=== PATIENT | male | born 1940 | race Caucasian/White ===

== ENCOUNTER 2018-09-17 10:54 | Day surgery (SDC) | payer MEDICARE ==
[~2018-09-17 10:54] MED LIST: CEFAZOLIN 2 Gram 2 GM/50 ML BAG IVPB ONE; FAMOTIDINE 20MG TABLET PO ONE; MECLIZINE 25 MG TABLET PO ONE; METOCLOPRAMIDE 10 MG TABLET PO ONE; VANCOMYCIN 1GM/200ML PREMIX 1 GM/200 ML PIGGYBACK IVPB ONE
[2018-09-17] MEDS ORDERED: LIDOCAINE 2% MDV (20MG/ML) 20ML VIAL IV ONE (10:55)
[2018-09-17] MEDS ORDERED: GLYCOPYRROLATE 0.2 MG/ML ML IV ONE (10:55)
[2018-09-17] MEDS ORDERED: DEXAMETHASONE 4 MG/ML 1ML VIAL IVP ONE (10:55)
[2018-09-17] MEDS ORDERED: MIDAZOLAM HCL 2MG/2ML VIAL IV ONE (10:55)
[2018-09-17] MEDS ORDERED: 0.9 % SODIUM CHLORIDE 10 ML VIAL IVP ONE (10:55)
[2018-09-17] MEDS ORDERED: ROPIVACAINE HCL (NAROPIN) /PF 5MG/ML 20ML VIAL IV ONE (10:55)
[2018-09-17] MEDS ORDERED: VASOPRESSIN 20 U/ML VIAL IM ONE (10:55)
[2018-09-17] MEDS ORDERED: EPHEDRINE SULFATE 50 MG/ML ML IV ONE (10:55)
[2018-09-17] MEDS ORDERED: TRANEXAMIC ACID 1,000 MG/10 ML ML IV ONE ×2 (10:55)
[2018-09-17] MEDS ORDERED: RINGERS SOLUTION,LACTATED 1,000 ML IV ONE (12:00)
[2018-09-17 12:41] LABS: ABO GROUP A; ANTIBODY SCREEN NEGATIVE (NEGATIVE); RH TYPE POSITIVE
[2018-09-17] MEDS ORDERED: BUPIVACAINE 0.5% W/EPI MPF 30 ML VIAL SQ ONE (13:32)
[2018-09-17] MEDS ORDERED: HYDROCODONE/APAP 10/325 TABLET PO PRN ×2 (14:31)
[2018-09-17] MEDS ORDERED: ONDANSETRON HCL IV 4 MG/2 ML VIAL IVP PRN (14:31)
[2018-09-17] MEDS ORDERED: NALOXONE 0.4 MG/1 ML VIAL IVP PRN (14:31)
[2018-09-17] MEDS ORDERED: BISACODYL 10 MG SUPP RC PRN (14:31)
[2018-09-17] MEDS ORDERED: MAGNESIUM HYDROXIDE 30 ML UDC PO PRN (14:31)
[2018-09-17] MEDS ORDERED: AL HYDROX/MAG HYDROX 30ML UD PO PRN (14:31)
[2018-09-17] MEDS ORDERED: KETOROLAC 30 MG/ML VIAL IVP PRN ×2 (14:31)
[2018-09-17] MEDS ORDERED: ACETAMINOPHEN W/ CODEINE 300MG/60MG TABLET PO PRN ×2 (14:31)
[2018-09-17] MEDS ORDERED: ZOLPIDEM TARTRATE 5 MG TABLET PO PRN (14:31)
[2018-09-17] MEDS ORDERED: ACETAMINOPHEN 325 MG TAB PO PRN (14:31)
[2018-09-17] MEDS ORDERED: DIPHENHYDRAMINE HCL 25 MG CAPSULE PO PRN (14:31)
[2018-09-17] MEDS ORDERED: TRAMADOL HCL 50 MG TABLET PO PRN (14:31)
[2018-09-17] MEDS: POTASSIUM CHLORIDE/D5-0.9%NACL 20 MEQ/1,000 ML BAG IV SCH (16:15)
[2018-09-17] MEDS ORDERED: ALBUTEROL HFA 8 GM INHALER INH PRN (16:24)
[2018-09-17] MEDS: HYDROMORPHONE HCL 2 MG/ML VIAL IM PRN ×2 (16:44→21:52)
[2018-09-17] MEDS: CEFAZOLIN 2 Gram 2 GM/50 ML BAG IVPB SCH (21:38)
[2018-09-17] MEDS: METOPROLOL SUCC 25 MG TAB.ER PO SCH (21:39)
[2018-09-17] MEDS: PANTOPRAZOLE SODIUM 40 MG TABLET PO SCH (21:39)
[2018-09-17] MEDS: DOCUSATE SODIUM 100 MG CAPSULE PO SCH (21:39)
[2018-09-17] MEDS ORDERED: AMITRIPTYLINE 25 MG TABLET PO SCH (22:00)
[2018-09-17] MEDS ORDERED: QUETIAPINE FUMARATE 25 MG TABLET PO SCH (22:00)
[2018-09-17] MEDS ORDERED: SIMVASTATIN 10MG TABLET PO SCH (22:00)
[2018-09-18] MEDS: POTASSIUM CHLORIDE/D5-0.9%NACL 20 MEQ/1,000 ML BAG IV SCH ×2 (00:58→12:36)
[2018-09-18 01:27] LABS: ARTERIAL BLOOD GAS BASE EXCESS -5.3 mmol/L (-2 - 3); ARTERIAL BLOOD GAS HCO3 22.1 mmol/L (18-23); ARTERIAL BLOOD GAS PCO2 53.6 mmHg (35-48); ARTERIAL BLOOD GAS pH 7.24 (7.35-7.45); CARBOXYHEMOGLOBIN 2.4 % (0-1.5); O2 HEMOGLOBIN 96.6 % vol (94-99); TOTAL HEMOGLOBIN 12.8 g/dl (14-18)
[2018-09-18 01:29] LABS: ALLEN TEST PASS
[2018-09-18] MEDS: CEFAZOLIN 2 Gram 2 GM/50 ML BAG IVPB SCH ×2 (05:18→12:38)
[2018-09-18] MEDS: PANTOPRAZOLE SODIUM 40 MG TABLET PO SCH (06:10)
[2018-09-18] MEDS ORDERED: LEVOTHYROXINE SOD 112 MCG TAB PO SCH (07:00)
[2018-09-18 07:45] LABS: BLOOD UREA NITROGEN 12 mg/dL (8-23); CREATININE 0.9 mg/dL (0.7-1.2); EST GLOMERULAR FILTRATION RATE > 60 mL/min; GLUCOSE,RANDOM 188 mg/dL (74-109)
[2018-09-18 08:24] LABS: HEMATOCRIT 44.4 % (42.0-52.0)
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
[2018-09-18] MEDS: DOCUSATE SODIUM 100 MG CAPSULE PO SCH (09:35)
[2018-09-18] MEDS: METOPROLOL SUCC 25 MG TAB.ER PO SCH (09:35)
[2018-09-18] MEDS ORDERED: RIVAROXABAN 10 MG TABLET PO SCH (10:00)
[2018-09-18] MEDS ORDERED: CHOLECALCIFEROL 1,000 UNIT TABLET PO SCH (10:00)
[2018-09-18] MEDS ORDERED: FERROUS SULFATE 325 MG TAB PO SCH (10:00)
[2018-09-18] MEDS ORDERED: LISINOPRIL 5 MG TABLET PO SCH (10:00)
[2018-09-18] MEDS ORDERED: DILTIAZEM 180MG CR CAPSULE PO SCH (10:00)
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
--- NOTE | 2018-09-18 15:31 | Physical Therapy Tx Note ---
Physical Therapy Tx Note - Treatment Note Tolerated: Good Total Time Spent With Patient: 15 Physical Therapy Tx Note: Detail (The patient was sitting on the edge of the bed when PT arrived. The patient ambulated with front wheeled walker x 1 25 feet and with his standard walker 25 feet x 1 WBAT on the R LE independently with occasional verbal cues for proper technique. The patient ambulated on 3 steps with use of folded walker and one railing with supervision for safety, using proper technique. The patient's was present and observed stair climbing. Both patient and his stated they were comfortable with stairclimbing and felt they would have no problem at home. The patient has met all inpatient goals and is discharged from inpatient PT.) Physical Therapy Problem List: Detail (1) Decreased R knee AROM 2) Decreased R LE strength 3) Impaired ambulation secondary to surgery) Physical Therapy Goals: The patient will ambulate on stairs using proper technique with supervision for safety. Physical Therapy Plan: The patient has met all inpatient PT goals and is discharged from inpt. PT. The patient is to receive Home PT.
--- NOTE | 2018-09-20 09:40 | Operative Note ---
DATE OF SURGERY: 09/17/2018 PREOPERATIVE DIAGNOSIS: End-stage arthrosis of the right knee. POSTOPERATIVE DIAGNOSIS: End-stage arthrosis of the right knee. OPERATION: Cemented right total knee arthroplasty using [employer] [place] II components with a size 7 cobalt chrome femur, a size 6 stemmed tibia baseplate, an 11 mm lipped tibial insert, and a 35 mm all-plastic patella. STAFF SURGEON: Renato Lim MD ANESTHESIA: Spinal. PREPARATION: Chloraprep. INDIVIDUAL CONSIDERATIONS: None. WOOD MODEL MAKER: Mrs. Maria Antonia Dickens PROCEDURE: The patient was taken to the operating room, placed supine on the operating room table. He had a successful induction of a spinal anesthetic. The right lower extremity was prepped and draped in the usual fashion. The patient had a midline approach to the knee. Sharp dissection carried down through skin and subcutaneous tissue. Small veins were coagulated with a Bovie. A medial arthrotomy was performed. The patella was everted and the knee was flexed. The patient had bone loss and exposed bone in the medial and patellofemoral compartments with huge marginal osteophytes. Fat pad was resected, ACL was sacrificed, and provisional anterior meniscectomies were performed. The capsule was released from the medial proximal tibia. The initial femoral towboat pilot hole was then made freehand. The intramedullary femoral cutting jig was placed. It was cut in 7.0 degrees of valgus and adjusted for rotation and secured with pins for a 10 mm resection. The initial transverse cut was then made. The skin guide was placed in the anterior and posterior towboat pilot holes. It was found that a size 7 would be appropriate. The anterior and posterior cuts followed by chamfer cuts were made. Osteophytes removed, and a size 7 trial was placed and found to fit well. The tibia was brought forward, and the remainder of the meniscal remnants removed with a Bovie. The extraarticular tibial cutting jig was placed. It was cut in neutral with a 3-degree AP slope. Care was taken to adjust for rotation and flexion using the extraarticular alignment guide and bony landmarks. It was set for a 9 mm resection keyed off the high lateral side and secured with pins. When cutting the tibia, care was taken to preserve the PCL insertion on the tibia. After removing huge medial osteophytes, it was found that a size 6 baseplate would fit appropriately. It was adjusted for rotation and secured with pins. With an 11 mm trial and femoral trial, there was excellent motion and stability, ligamentous balance, rotation alignment, and patellofemoral tracking even at this point were normal. Femoral towboat pilot holes were impacted and tri-flange tibial stamp was impacted, and these trial components were removed. The patient had a thick patella and roughly 9 mm of bone was removed freehand. I could easily fit a 35 patella, and the 3 towboat pilot holes were drilled. The tourniquet was let down briefly to get bleeders posteriorly and then placed back up again. The knee was then thoroughly irrigated out with pulsatile Betadine and saline to remove any visual or palpable debris. Bony surfaces were then dried. A size 6 stemmed tibia baseplate was cemented into place followed by impaction of the 11 mm lipped tibial insert followed by cementing in the size 7 cobalt chrome femur followed by cementing in the 35 mm patella. The implant surfaces were compressed, excess cement was removed. After the cement had set, there was excellent motion and stability, ligamentous balance, rotation alignment, and patellofemoral tracking were normal. No lateral release was required. Thorough irrigation again. Then tourniquet was let down. Hemostasis was obtained with a Bovie. The skin and subcutaneous tissue was infiltrated with 0.5% Marcaine with epinephrine. The capsule was then closed with a running #2 quill, subcu was closed in layers with running 0 quill, skin was closed with shonna. Then 1 g of tranexamic acid was mixed with 30 mL of saline and injected into the knee through a sterile 18-gauge needle, and a sterile bulky compressive EDWARD-type dressing was applied. The patient tolerated the procedure well. Needle and sponge counts were correct. Estimated blood loss was minimal, and he was taken back to recovery in good condition. There were no complications. [facility]
== END 2018-09-18 15:20 | disposition home health service (06) ==
LOC: SUR 10:54 → MEDSURG 15:43 → SUR 09-18 15:20
PROVIDERS: ATTEND Orthopaedic Surgery
DX: M17.11 Unilateral primary osteoarthritis, right knee (principal); I10 Essential (primary) hypertension; J44.9 Chronic obstructive pulmonary disease, unspecified; E78.00 Pure hypercholesterolemia, unspecified; K21.9 Gastro-esophageal reflux disease without esophagitis; I50.9 Heart failure, unspecified; E03.9 Hypothyroidism, unspecified; Z95.0 Presence of cardiac pacemaker
CPT/HCPCS: 27447; 01402; 64447; 84132; 85018; 85014; 82375; 80048; 82803; 86900; 86901; 86850; 36600; 94760; 76942; J3490 ×5; J1885; J1170; J0690 ×2; J2795; J3370; C1776; J3480; J7120